=== PATIENT | female | born 1995 | race Caucasian/White ===

== ENCOUNTER 2025-03-16 14:22 | Inpatient (IN) | payer OTHER, SELFPAY ==
[2025-03-16 14:31] VITALS: BP 133/83; BP 138/62; PULSE 100; PULSE 93; RESP 16; TEMP 37; O2SAT 100; O2SAT 96; BMI 27.6
[2025-03-16 14:35] VITALS: BP 133/83; PULSE 95; RESP 14; TEMP 37; O2SAT 98
--- NOTE | 2025-03-16 14:39 | PC.NURSE ---
changer fixer done in room22 by Security Dennis and PCT Keshav. belongings locked in [facility] 3
--- NOTE | 2025-03-16 14:42 | ECG_ITS ---
Test Reason : CHECK QTC Blood Pressure : */* mmHG Vent. Rate : 102 BPM Atrial Rate : 102 BPM P-R Int : 156 ms QRS Dur : 92 ms QT Int : 368 ms P-R-T Axes : 47 80 25 degrees QTcB Int : 479 ms Sinus tachycardia Otherwise normal ECG No previous ECGs available Referred By: Rose Mary Caceres Electronically Signed By: JOSLYN GOMEZ MD
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
[2025-03-16 15:02] LABS: MANUAL DIFF FLAG NO
[2025-03-16 15:17] LABS: Basophils Percent Auto 0.3 % (0-2); Eosinophils Percent Auto 0.2 % (0-4); Hematocrit 36.3 % (37.0-47.0); Hemoglobin 11.8 g/dl (12.0-16.0); Imm Gran Abs Auto 0.05 X10*3/uL (0.00-0.03); Imm Gran Pct Auto 0.4 % (0.0-0.4); Lymphocytes Absolute Auto 2.3 X10*3/uL (1.2-4.9); Lymphocytes Percent Auto 20.7 % (20-40); Mean Corpuscular HGB Conc 32.5 g/dl (31.0-35.0); Mean Corpuscular Hemoglobin 26.8 pg (27.0-33.0); Mean Corpuscular Volume 82.5 fL (80.0-98.0); Mean Platelet Volume 8.5 fL (9.4-12.3); Monocytes Absolute Auto 0.7 X10*3/uL (0.1-1.2); Monocytes Percent Auto 5.8 % (2-11); Neutrophils Absolute Auto 8.1 x10*3/uL (2.0-8.3); Neutrophils Percent Auto 72.6 % (45-73); Platelet Count 412 X10*3/uL (160-400); White Blood Count 11.1 X10*3/uL (4.8-10.8)
[2025-03-16 15:32] LABS: Amphetamine Screen Urine Not Detected (Not Detect); Barbiturates, Urine Not Detected (Not Detect); Benzodiazepines Screen Urine Not Detected (Not Detect); Buprenorphine Scr Not Detected (Not Detect); Cannabinoid Screen Urine POSITIVE (Not Detect); Cocaine Screen Urine Not Detected (Not Detect); Fentanyl, urine Not Detected (Not Detect); Methadone Screen, Urine Not Detected (Not Detect); Opiate Screen Urine Not Detected (Not Detect); Oxycodone Screen Urine Not Detected (Not Detect); Phencyclidine Screen Urine Not Detected (Not Detect)
[2025-03-16 15:34] LABS: Alanine Aminotransferase 23 U/L (0-31); Albumin Level 4.1 g/dL (3.5-5.0); Anion Gap 13 (12-20); Aspartate Amino Transferase 25 U/L (5-31); Bilirubin Direct 0.1 mg/dL (0.0-0.5); Bilirubin Total 0.3 mg/dL (0.0-1.0); Blood Urea Nitrogen 6 mg/dL (9-16); Calcium 8.3 mg/dL (8.4-10.2); Carbon Dioxide 21 mmol/L (22-29); Chloride 109 mmol/L (96-108); Creatinine Clr Calc Pharmacy 136.9; Estimated Glomerular Filt Rate > 60; Ethanol < 10 mg/dL; Glucose Random 85 mg/dL (60-115); Magnesium 2.6 mg/dL (1.6-2.6); Sodium 139 mmol/L (135-145); Total Protein 6.8 g/dL (6.5-8.0)
[2025-03-16 15:39] LABS: Appearance Urine Clear; Color Urine Yellow; Glucose Urine UA Negative (Negative); Leukocyte Esterase Urine Negative (Negative); Nitrite Urine Negative (Negative); Urine Blood Negative (Negative); Urine Ketones 40 mg/dL (Negative); Urine Protein Negative (Neg-Trace)
[2025-03-16] MEDS: LORazepam 1 MG TABLET 2 MG PO (15:40)
[2025-03-16 15:44] LABS: Bacteria Urine 2+ (None Seen); Hyaline Casts Urine 0-2 /LPF (0-2); RBC Urine 0-2 /HPF (0-2); WBC Urine 0-5 /HPF (0-5)
[2025-03-16 16:03] LABS: Alkaline Phosphatase 79 U/L (39-117)
[2025-03-16 16:39] LABS: UPreg QC Valid YES; Urine Pregnancy NEGATIVE (NEGATIVE)
--- OUTSIDE RECORDS SUMMARY | 2025-03-16 18:01 | XMS_ITS | Encounter Summary ---
Author Organization [facility] Address [address] [place] [address] Care Team Providers Care Extractor Operator Solvent Process Name Role Phone Fidel Jiménez MD Primary Care Provider [phone] Encounter Details Date Type Department Care Team (Late st Contact Info) Description 02/14/2025 Lab Requisition [facility] Lab [address] [facility] [place] [address] Social History Tobacco Use Types Packs/Day Years Used Date Smoking Tobacco: Never Smokeless Tobacco: Never Alcohol Use Standard Drinks/Week Comments No 0 (1 standard drink = 0.6 oz pur e alcohol) Comments Unknown Sex and Gender Information Value Date Recorded Sex Assigned at Not on file Legal Sex Female 4:21 PM EST Gender Identity Not on file Sexual Orientation Not on file documented as of this encounter Plan of Treatment Not on file documented as of this encounter Visit Diagnoses Not on filedocumented in this encounter Care Teams Extractor Operator Solvent Process Relationship Specialty Start Date End Date Fidel Jiménez MD [address] [place] [id number] PCP - General Internal Medicine 03/06/16 documented as of this encounter
--- OUTSIDE RECORDS SUMMARY | 2025-03-16 18:01 | XMS_ITS | Encounter Summary ---
Author Organization [facility] Address [address] [place] [address] Care Team Providers Care Ironworker Name Role Phone Fidel Jiménez MD Primary Care Provider [phone] Encounter Details Date Type Department Care Team (Late st Contact Info) Description 02/14/2025 Lab Requisition [facility] Lab [address] [facility] [place] [phone] Susana [place] [phone] Social History Tobacco Use Types Packs/Day Years [...] on filedocumented in this encounter Care Teams Ironworker Relationship Specialty Start Date End Date Fidel Jiménez MD [address] [place] [id number] PCP - General Internal Medicine 03/06/16 documented as of this encounter
--- OUTSIDE RECORDS SUMMARY | 2025-03-16 18:01 | XMS_ITS | Clinical Summary ---
Author Organization [facility] [address] [facility] Address [address] [place] [address] Phone Care Team Providers Care Carpet Renovator Name Role Phone Fidel Jiménez MD Primary Care Provider [phone] Allergies No known active allergies Medications lamoTRIgine (LaMICtal) 100 mg tablet Take 100 mg by mouth daily. Active adapalene (Differin) 0.1 % gel apply QHS after washing 06/27/2009 Active fluticasone propionate (FLONASE) 50 mcg/actuation nasal spray 1 spray to each nostril QD 05/11/2009 Active Active Problems Problem Noted Date Diagnosed Date Other specified health status 12/15/2024 Overview (12/15/2024): Contact dermatitis and other eczema, due to unspecified cause Manic depressive illness (CMS/[facility] V24, CMS/[facility] V 28) 02/24/2012 Encounters Date Type Department Care Team Description 02/14/[address] [facility] Lab [address] [place] [phone] 02/14/[address] [facility] Lab [address] [place] [address] Liza Rivers Other long term care administrator (current) drug therapy 02/14/[address] [facility] Lab [address] [place] [address] Liza Rivers from Last 3 Months Immunizations Name Administration Dates Next Due DTP 05/05/1996, 5,04/28/1995,01/05 DTaP (Infanrix) 6wks to less than 7yo 05/15/1999 [id number] (Pentacel) 2mo to less than 5yo 05/05/1996,06/17/1995,04/28/1995,01/05 HPV, Quadrivalent 10/28/2011,05/19/2011,02/08/20 11 Hepatitis B Pediatric (Enger ix B; Recombivax HB) to less than 20 yo 08/13/1995,04/28/1995,1994 IPV Inactivated polio (Ipol) 6wks and older 04/22/2000 Influenza trivalent, with pr eservative (Fluzone; Afluria) 6mo and older 10/10/2010 MMR, measles mumps and rubel la Live (Priorix; M-M-R II) 12mo and older 04/22/2000,02/04/1996 Meningococcal MCV4P 05/11/2009 OPV 05/05/1996,04/28/1995,01/05/1995 PPD Test 05/19/2011 Tdap Tetanus diptheria acell ular pertussis (Boostrix; Adacel) 7yo and older 07/30/2007 Varicella live (Varivax) 12m o and older 02/07/2011,03/14/1998 Medical History Medical History Date Comments Contact dermatitis and other eczema, due to unspecified cause DX:Contact dermatitis and ot her eczema, due to unspecified cause Family History Medical History Relation Name Comments Hyperlipidemia Father Other cancer Father Other: HEART Maternal Grandfather Diabetes Other 1 PGGF Other: EMPHYSEMA Other 2 GRANDMOTHER Asthma Sister 1 Other: HORSE-SHOE KIDNEY Sister 2 Relation Name Status Comments Father Maternal Grandfather Other 1 Other 2 Other 3 Sister 1 Sister 2 Sister 3 Social History Tobacco Use Types Packs/Day Years Used Date Smoking Tobacco: Never Smokeless Tobacco: Never Alcohol Use Standard Drinks/Week Comments No 0 (1 standard drink = 0.6 oz pur e alcohol) Comments Unknown Sex and Gender Information Value Date Recorded Sex Assigned at Not on file Legal Sex Female 4:21 PM EST Gender Identity Not on file Sexual Orientation Not on file Obstetrics History Plan of Treatment Health Maintenance Due Date Last Done Comments Cervical Cancer Screening: Pap Smear 2015 DTaP,Tdap,and Td Vaccines (7 - Td or Tdap) 07/30/2017 07/30/2007, 05/15/1999, 05/05/1996, Additional history exists COVID-19 Vaccine ( season) 2024 Depression Screening 10/01/2024 HIV Screening 10/01/2024 Hepatitis C Screening 10/01/2024 Social Influencers of Health Screening 10/01/2024 Influenza Vaccine (Season Ended) 2025 10/10/2010 Hepatitis B Vaccines Completed 08/13/1995, 04/28/1995, 1994 HIB Vaccines Completed 05/05/1996, 05/30, 04/28/1995, Additional history exists IPV Vaccines Completed 04/22/2000, 04/1996, 05/05/1996, Additional history exists MMR Vaccines Completed 04/22/2000, 02/04/1996 Meningococcal ACWY Vaccine Aged Out 05/11/2009 N o longer eligible based on patient's age to complete this topic Varicella Vaccines Completed 02/07/2011, 03/14/1998 HPV Vaccines Completed 10/28/2011, 05/01, 02/07/2011 Hepatitis A Vaccines Aged Out No long er eligible based on patient's age to complete this topic Meningococcal B Vaccine Aged Out No l onger eligible based on patient's age to complete this topic Pneumococcal Vaccine: Pediatrics (0 to 5 Years) and At-Risk Patients (6 to 64 Years) Aged Out No longer eligible based on patient's age to complete this topic RSV Immunization Patients Under 20 months Aged Out No longer eligible based on patient's age to complete this topic Procedures Procedure Name Priority Date/Time Associated Diagnosis Comments CBC WITH AUTO DIFFERENTIAL Routine 02/14/2025 7:00 AM EDT Other [facility] (current) drug therapy COMPREHENSIVE METABOLIC PANEL Routine 02/14/2025 7:00 AM EDT Other penitentiary (current) drug therapy CBC AND DIFFERENTIAL Routine 02/14/2025 7:00 AM EDT Other long term care administrator (current) drug therapy from Last 3 Months Results * (ABNORMAL) CBC auto differential (02/14/2025 7:00 AM EDT) [facility] WBC 7.3 4.8 - 10.8 K/mcL LAB HEMETOLOGY METHOD 02/14/2025 1:02 PM [facility] RBC 4.90(H) 3.80 - 4.80 M/mcL LAB [facility] Hemoglobin 13.0 11.5 - 16.0 g/dL LAB HEMETOLOGY METHOD 02/14/2025 1:02 PM [facility] Hematocrit 40.3 35.0 - 47.0 % LAB HEMETOLOGY METHOD 02/14/2025 1:02 PM [facility] MCV 82.8 79.0 - 98.0 FL LAB HEMETOLOGY METHOD 02/14/2025 1:02 PM [facility] MCH 26.7(L) 27.0 - 32.0 pcg LAB HEMETOLOGY METHOD 02/14/2025 1:02 PM [facility] LAB MCHC 32.3 32.0 - 37.0 g/dL LAB HEMETOLOGY METHOD 02/14/2025 1:02 PM [facility] RDW 14.0 11.0 - 15.0 % LAB HEMETOLOGY METHOD 02/14/2025 1:02 PM [facility] Platelets 384 130 - 400 K/mcL LAB HEMETOLOGY METHOD 02/14/2025 1:02 PM [facility] MPV 9.7 7.0 - 11.0 FL LAB HEMETOLOGY METHOD 02/14/2025 1:02 PM [facility] NRBC 0.0 <1.0 % LAB HEMETOLOGY METHOD 02/14/2025 1:02 PM [facility] NRBC Absolute 0.00 <0.10 K/mcL LAB HEMETOLOGY METHOD 02/14/2025 1:02 PM [facility] Neutrophils Relative 63.5 % LAB HEMETOLOGY METHOD 02/14/2025 1:02 PM [facility] Lymphocytes Relative 29.4 % LAB HEMETOLOGY METHOD 02/14/2025 1:02 PM [facility] Monocytes Relative 6.3 % LAB HEMETOLOGY METHOD 02/14/2025 1:02 PM [facility] Eosinophils Relative 0.1 % LAB HEMETOLOGY METHOD 02/14/2025 1:02 PM [facility] Basophils Relative 0.4 % LAB HEMETOLOGY METHOD 02/14/2025 1:02 PM [facility] Immature Granulocytes Relative 0.3 % LAB HEMETOLOGY METHOD 02/14/2025 1:02 PM [facility] Neutrophils Absolute 4.64 1.50 - 7.00 K/mcL LAB HEMETOLOGY METHOD 02/14/2025 1:02 PM [facility] Lymphocytes Absolute 2.15 1.00 - 5.00 K/mcL LAB HEMETOLOGY METHOD 02/14/2025 1:02 PM [facility] Monocytes Absolute 0.46 0.20 - 1.00 K/mcL LAB HEMETOLOGY METHOD 02/14/2025 1:02 PM [facility] Eosinophils Absolute 0.01 0.00 - 0.50 K/mcL LAB HEMETOLOGY METHOD 02/14/2025 1:02 PM [facility] Basophils Absolute 0.03 0.00 - 0.20 K/mcL LAB HEMETOLOGY METHOD 02/14/2025 1:02 PM [facility] Immature Granulocytes Absolute 0.02 0.00 - 0.03 K/mcL LAB HEMETOLOGY METHOD 02/14/2025 1:02 PM EDT [facility] Blood Venous blood specimen / Unknown Venipuncture / Unknown 02/14/2025 7:00 AM EDT 02/14/2025 11:19 AM EDT us Liza Rivers LAB BLOOD ORDERABLES Final Resu lt [facility] [address] [place] [address], * (ABNORMAL) Comprehensive metabolic panel (02/14/2025 7:00 AM EDT) Sodium 141 133 - 145 mmol/L LAB CHEMISTRY METHOD 02/14/2025 1:49 PM [facility] Potassium 4.1 3.5 - 5.5 mmol/L LAB CHEMISTRY METHOD 02/14/2025 1:49 PM [facility] Chloride 109 96 - 110 mmol/L LAB CHEMISTRY METHOD 02/14/2025 1:49 PM [facility] CO2 23 21 - 32 mmol/L LAB CHEMISTRY METHOD 02/14/2025 1:49 PM [facility] Anion Gap 9 3 - 11 LAB CHEMISTRY METHOD 02/14/2025 1:49 PM [facility] Glucose 109(H) 70 - 100 mg/dL LAB CHEMISTRY METHOD 02/14/2025 1:49 PM [facility] BUN 7 5 - 25 mg/dL LAB CHEMISTRY METHOD 02/14/2025 1:49 PM [facility] Creatinine 0.74 0.50 - 1.10 mg/dL LAB CHEMISTRY METHOD 02/14/2025 1:49 PM [facility] eGFR 112 >=60 mL/min/1. 73m2 LAB CHEMISTRY METHOD 02/14/2025 1:49 PM [facility] Comment:Calculation based on the??Chronic Kidney Disease Epidemiology Collaboration (CKD-EPI) equation refit??without adjustment for race. BUN/Creatinine Ratio 9.5 LAB CHEMISTRY METHOD 02/14/2025 1:49 PM EDT [facility] Calcium 9.4 8.5 - 10.5 mg/dL LAB CHEMISTRY METHOD 02/14/2025 1:49 PM EDT [facility] AST (SGOT) 23 10 - 42 unit/L LAB CHEMISTRY METHOD 02/14/2025 1:49 PM EDT [facility] ALT (SGPT) 34 10 - 60 unit/L LAB CHEMISTRY METHOD 02/14/2025 1:49 PM EDT [facility] Alkaline Phosphatase 92 42 - 121 unit/L LAB CHEMISTRY METHOD 02/14/2025 1:49 PM EDT [facility] Total Protein 8.0 6.0 - 8.0 g/dL LAB CHEMISTRY METHOD 02/14/2025 1:49 PM EDT [facility] Albumin 4.4 3.2 - 5.0 g/dL LAB CHEMISTRY METHOD 02/14/2025 1:49 PM [facility] Total Bilirubin 0.4 0.0 - 1.4 mg/dL LAB CHEMISTRY METHOD 02/14/2025 1:49 PM EDT [facility] Blood Venous blood specimen / Unknown Venipuncture / Unknown 02/14/2025 7:00 AM EDT 02/14/2025 11:19 AM EDT us Liza Rivers LAB BLOOD ORDERABLES Final Resu lt [facility] [address] [place] [address], from Last 3 Months Insurance MEDICAID - [place] Care Teams Carpet Renovator Relationship Specialty Start Date End Date Fidel Jiménez MD [address] [place] [phone] PCP - General Internal Medicine 03/06/16
--- OUTSIDE RECORDS SUMMARY | 2025-03-16 18:02 | XMS_ITS | Encounter Summary ---
Author Organization [facility] Address [address] [place] [address] Care Team Providers Care Production Support Engineer Name Role Phone Fidel Jiménez MD Primary Care Provider [phone] Encounter Details Date Type Department Care Team (Late st Contact Info) Description 02/14/2025 Lab Requisition [facility] - Main Lab [address] [place] [phone] Susana Rivers-Kerry [address] [place] [phone] Other intermediate teacher (current) drug therapy Social History Tobacco Use Types Packs/Day Years [...] on file documented as of this encounter Procedures Procedure Name Priority Date/Time Associated Diagnosis Comments CBC WITH AUTO DIFFERENTIAL Routine 02/14/2025 7:00 AM EDT Other alf (current) drug therapy CBC AND DIFFERENTIAL Routine 02/14/2025 7:00 AM EDT Other alf (current) drug therapy COMPREHENSIVE METABOLIC PANEL Routine 02/14/2025 7:00 AM EDT Other alf (current) drug therapy documented in this encounter Results * (ABNORMAL) CBC auto differential (02/14/2025 7:00 AM EDT) [facility] WBC 7.3 4.8 - 10.8 K/mcL LAB HEMETOLOGY METHOD 02/14/2025 1:02 PM [facility] LAB RBC 4.90(H) 3.80 - 4.80 M/mcL LAB HEMETOLOGY METHOD 02/14/2025 1:02 PM [facility] LAB Hemoglobin 13.0 11.5 - 16.0 g/dL LAB HEMETOLOGY METHOD 02/14/2025 1:02 PM [facility] LAB Hematocrit 40.3 35.0 - 47.0 % LAB HEMETOLOGY METHOD 02/14/2025 1:02 PM [facility] MCV 82.8 79.0 - 98.0 FL LAB HEMETOLOGY METHOD 02/14/2025 1:02 PM [facility] LAB MCH 26.7(L) 27.0 - 32.0 pcg LAB HEMETOLOGY METHOD 02/14/2025 1:02 PM [facility] LAB MCHC 32.3 32.0 - 37.0 g/dL LAB HEMETOLOGY METHOD 02/14/2025 1:02 PM [facility] RDW 14.0 11.0 - 15.0 % LAB HEMETOLOGY METHOD 02/14/2025 1:02 PM [facility] Platelets 384 130 - 400 K/mcL LAB HEMETOLOGY METHOD 02/14/2025 1:02 PM [facility] MPV 9.7 7.0 - 11.0 FL LAB HEMETOLOGY METHOD 02/14/2025 1:02 PM [facility] NRBC 0.0 <1.0 % LAB HEMETOLOGY METHOD 02/14/2025 1:02 PM [facility] LAB NRBC Absolute 0.00 <0.10 K/mcL LAB HEMETOLOGY METHOD 02/14/2025 1:02 PM [facility] Neutrophils Relative 63.5 % LAB HEMETOLOGY METHOD 02/14/2025 1:02 PM [facility] Lymphocytes Relative 29.4 % LAB HEMETOLOGY METHOD 02/14/2025 1:02 PM [facility] Monocytes Relative 6.3 % LAB HEMETOLOGY METHOD 02/14/2025 1:02 PM [facility] Eosinophils Relative 0.1 % LAB HEMETOLOGY METHOD 02/14/2025 1:02 PM [facility] Basophils Relative 0.4 % LAB HEMETOLOGY METHOD 02/14/2025 1:02 PM [facility] Immature Granulocytes Relative 0.3 % LAB HEMETOLOGY METHOD 02/14/2025 1:02 PM [facility] Neutrophils Absolute 4.64 1.50 - 7.00 K/mcL LAB HEMETOLOGY METHOD 02/14/2025 1:02 PM [facility] Lymphocytes Absolute 2.15 1.00 - 5.00 K/mcL LAB HEMETOLOGY METHOD 02/14/2025 1:02 PM [facility] Monocytes Absolute 0.46 0.20 - 1.00 K/mcL LAB HEMETOLOGY METHOD 02/14/2025 1:02 PM [facility] Eosinophils Absolute 0.01 0.00 - 0.50 K/mcL LAB HEMETOLOGY METHOD 02/14/2025 1:02 PM [facility] Basophils Absolute 0.03 0.00 - 0.20 K/mcL LAB HEMETOLOGY METHOD 02/14/2025 1:02 PM [facility] Immature Granulocytes Absolute 0.02 0.00 - 0.03 K/mcL LAB HEMETOLOGY METHOD 02/14/2025 1:02 PM [facility] Blood Venous blood specimen / Unknown Venipuncture / Unknown 02/14/2025 7:00 AM EDT 02/14/2025 11:19 AM EDT us Liza Rivers LAB BLOOD ORDERABLES Final Resu lt [facility] [address] [place] [address], * (ABNORMAL) Comprehensive metabolic panel (02/14/2025 7:00 AM EDT) Sodium 141 133 - 145 mmol/L LAB CHEMISTRY METHOD 02/14/2025 1:49 PM [facility] Potassium 4.1 3.5 - 5.5 mmol/L LAB CHEMISTRY METHOD 02/14/2025 1:49 PM [facility] Chloride 109 96 - 110 mmol/L LAB CHEMISTRY METHOD 02/14/2025 1:49 PM [facility] CO2 23 21 - 32 mmol/L LAB CHEMISTRY METHOD 02/14/2025 1:49 PM [facility] Anion Gap 9 3 - 11 LAB CHEMISTRY METHOD 02/14/2025 1:49 PM [facility] Glucose 109(H) 70 - 100 mg/dL LAB CHEMISTRY METHOD 02/14/2025 1:49 PM [facility] BUN 7 5 - 25 mg/dL LAB CHEMISTRY METHOD 02/14/2025 1:49 PM [facility] Creatinine 0.74 0.50 - 1.10 mg/dL LAB CHEMISTRY METHOD 02/14/2025 1:49 PM [facility] LAB eGFR 112 >=60 mL/min/1. 73m2 LAB CHEMISTRY METHOD 02/14/2025 1:49 PM [facility] Comment:Calculation based on the??Chronic Kidney Disease Epidemiology Collaboration (CKD-EPI) equation refit??without adjustment for race. BUN/Creatinine Ratio 9.5 LAB CHEMISTRY METHOD 02/14/2025 1:49 PM EDT [facility] Calcium 9.4 8.5 - 10.5 mg/dL LAB CHEMISTRY METHOD 02/14/2025 1:49 PM EDT [facility] AST (SGOT) 23 10 - 42 unit/L LAB CHEMISTRY METHOD 02/14/2025 1:49 PM EDT [facility] ALT (SGPT) 34 10 - 60 unit/L LAB CHEMISTRY METHOD 02/14/2025 1:49 PM EDT [facility] Alkaline Phosphatase 92 42 - 121 unit/L LAB CHEMISTRY METHOD 02/14/2025 1:49 PM EDT [facility] Total Protein 8.0 6.0 - 8.0 g/dL LAB CHEMISTRY METHOD 02/14/2025 1:49 PM EDT [facility] Albumin 4.4 3.2 - 5.0 g/dL LAB CHEMISTRY METHOD 02/14/2025 1:49 PM EDT [facility] Total Bilirubin 0.4 0.0 - 1.4 mg/dL LAB CHEMISTRY METHOD 02/14/2025 1:49 PM T [facility] Blood Venous blood specimen / Unknown Venipuncture / Unknown 02/14/2025 7:00 AM EDT 02/14/2025 11:19 AM EDT us Liza Rivers LAB BLOOD ORDERABLES Final Resu lt [facility] [address] [place] [address], [place] [phone] documented in this encounter Visit Diagnoses Diagnosis Other intermediate teacher (current) drug therapy documented in this encounter Care Teams Production Support Engineer Relationship Specialty Start Date End Date Fidel Jiménez MD [address] [place] [phone] PCP - General Internal Medicine 03/06/16 documented as of this encounter
[2025-03-16 21:00] VITALS: BP 118/64; PULSE 90; RESP 12; TEMP 37.1; O2SAT 100
--- NOTE | 2025-03-16 21:44 | PHA.MEDREC ---
Pharmacy Consult ? Medication Reconciliation Pharmacy has reviewed the medication reconciliation done by nursing. Nursing confirmed pt is from home, and last took clozapine dose one week ago on 03/09.
[2025-03-16] MEDS: Mirtazapine 7.5 MG TABLET PO (22:34)
[2025-03-16] MEDS: clonazePAM 1 MG TABLET PO (22:35)
[2025-03-16] MEDS: hydrOXYzine HCL 50 MG TABLET PO (22:35)
[2025-03-16] MEDS: QUEtiapine Fumarate 300 MG TABLET 600 MG PO (22:35)
[2025-03-16] MEDS: cloZAPine 25 MG TABLET 12.5 MG PO (22:56)
[2025-03-17 06:41] VITALS: BP 107/70; PULSE 79; RESP 16; TEMP 36.3; O2SAT 100
--- NOTE | 2025-03-17 10:20 | MHC.EDTECH ---
Patient refused lab draw at this time. RN aware
[2025-03-17 11:40] LABS: MANUAL DIFF FLAG NO
[2025-03-17 11:42] LABS: Basophils Percent Auto 0.4 % (0-2); Eosinophils Absolute Auto 0.1 X10*3/uL (0.0-0.4); Eosinophils Percent Auto 0.6 % (0-4); Hematocrit 39.8 % (37.0-47.0); Imm Gran Abs Auto 0.04 X10*3/uL (0.00-0.03); Imm Gran Pct Auto 0.4 % (0.0-0.4); Lymphocytes Absolute Auto 2.8 X10*3/uL (1.2-4.9); Lymphocytes Percent Auto 25.6 % (20-40); Mean Corpuscular HGB Conc 32.7 g/dl (31.0-35.0); Mean Corpuscular Hemoglobin 27.3 pg (27.0-33.0); Mean Corpuscular Volume 83.6 fL (80.0-98.0); Mean Platelet Volume 8.5 fL (9.4-12.3); Monocytes Absolute Auto 0.6 X10*3/uL (0.1-1.2); Monocytes Percent Auto 5.5 % (2-11); Neutrophils Absolute Auto 7.4 x10*3/uL (2.0-8.3); Neutrophils Percent Auto 67.5 % (45-73); Platelet Count 390 X10*3/uL (160-400); Red Blood Count 4.76 X10*6/uL (4.20-5.50); Red Cell Distribution Width 14.2 % (11.0-16.0)
[2025-03-17] MEDS: hydrOXYzine HCL 50 MG TABLET PO ×3 (13:49→20:34)
[2025-03-17 17:07] VITALS: BMI 27.1
[2025-03-17 17:08] VITALS: BP 125/82; PULSE 76; RESP 14; TEMP 37.1; O2SAT 97
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
[2025-03-17 19:41] VITALS: BP 110/52; PULSE 76; TEMP 36.9; O2SAT 98
[2025-03-17] MEDS: QUEtiapine Fumarate 50 MG TABLET PO (20:34)
[2025-03-17] MEDS: Mirtazapine 7.5 MG TABLET PO (20:34)
[2025-03-17] MEDS: QUEtiapine Fumarate 300 MG TABLET 600 MG PO (20:35)
[2025-03-17] MEDS: traZODone HCL 50 MG TABLET PO (20:35)
[2025-03-17] MEDS: cloZAPine 25 MG TABLET PO (20:35)
[2025-03-18] MEDS: hydrOXYzine HCL 50 MG TABLET PO ×2 (08:58→21:17)
[2025-03-18] MEDS: QUEtiapine Fumarate 50 MG TABLET PO ×2 (08:58→21:13)
[2025-03-18 09:10] VITALS: BP 113/63; PULSE 81; TEMP 36.3; O2SAT 98
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
[2025-03-18 19:36] VITALS: BP 130/83; PULSE 104; TEMP 36.9; O2SAT 97
[2025-03-18] MEDS: Lithium Carbonate 300 MG TABLET 150 MG PO (21:11)
[2025-03-18] MEDS: QUEtiapine Fumarate 300 MG TABLET 600 MG PO (21:11)
[2025-03-18] MEDS: hydrOXYzine HCL 25 MG TABLET PO (21:12)
[2025-03-18] MEDS: traZODone HCL 50 MG TABLET PO ×2 (21:12→22:19)
[2025-03-18] MEDS: Mirtazapine 7.5 MG TABLET PO (21:12)
[2025-03-18] MEDS: cloZAPine 25 MG TABLET 50 MG PO (21:17)
[2025-03-18] MEDS: clonazePAM 1 MG TABLET PO (22:19)
[2025-03-18] MEDS: OLANZapine 5 MG TABLET PO (22:19)
[2025-03-18] MEDS: LORazepam 1 MG TABLET 2 MG PO (23:23)
[2025-03-19 08:00] VITALS: BP 99/55; PULSE 91; TEMP 36.9; O2SAT 98
[2025-03-19] MEDS: QUEtiapine Fumarate 50 MG TABLET PO ×2 (08:09→21:23)
[2025-03-19] MEDS: hydrOXYzine HCL 50 MG TABLET PO ×2 (08:09→21:23)
[2025-03-19] MEDS: LORazepam 1 MG TABLET 2 MG PO (08:09)
[2025-03-19 08:42] LABS: Estimated Average Glucose 97 mg/dL; Hemoglobin A1C 102.7294 umol/L; Total Hemoglobin (HGBA1C) 3257.7528 umol/L
[2025-03-19 09:01] LABS: Alanine Aminotransferase 23 U/L (0-31); Albumin Level 4.1 g/dL (3.5-5.0); Alkaline Phosphatase 68 U/L (39-117); Anion Gap 13 (12-20); Aspartate Amino Transferase 21 U/L (5-31); Bilirubin Total 0.2 mg/dL (0.0-1.0); Blood Urea Nitrogen 8 mg/dL (9-16); Calcium 9.1 mg/dL (8.4-10.2); Carbon Dioxide 21 mmol/L (22-29); Chloride 108 mmol/L (96-108); Cholesterol 166 mg/dL (<200); Creatinine Clr Calc Pharmacy 127.3; Estimated Glomerular Filt Rate > 60; Glucose Random 99 mg/dL (60-115); HDL Cholesterol 42 mg/dL (>40); LDL Cholesterol Calculated 104 mg/dL (<100); Potassium 4.2 mmol/L (3.3-5.1); Sodium 138 mmol/L (135-145); Total Protein 6.6 g/dL (6.5-8.0); Triglycerides 102 mg/dL (<150)
[2025-03-19 09:17] LABS: TSH reflex Free T4 0.95 uIU/mL (0.32-4.0)
--- NOTE | 2025-03-19 10:14 | P.PNPSI_ITS ---
Subjective Subjective Date of Service: 03/19/25 Reason For Visit: Psychosis Subjective Notes: Conditional Voluntary Interim History: Patient was seen and discussed in rounds today. Records and plans were reviewed. She continues to be somewhat labile, pacing and internally preoccupied. No SI. Eating and sleeping adequately. Endorses AVH , generally not command in nature. No changes were made today Review of Systems Review of Systems Yes all other systems are reviewed and are negative Mental Status Exam Mental Status Exam Narrative: In today's visit she is alert, oriented and pleasant. Normal speech. Good eye contact. Affect is appropriate and somewhat labile. She admits to AVH. She admits to paranoid ideations and delusions. Cognitively she is grossly intact. No active suicidal homicidal ideations. No SI. She is able to move all limbs. No gait abnormalities. Judgment is generally intact Diagnostics Vital Signs (24Hr): Vital Signs - 24 hr 03/18/25 19:36 03/19/25 08:00 Temperature 98.4 F 98.4 F Pulse Rate 104 H 91 Blood Pressure 130/83 99/55 L Pulse Oximetry 97 98 Oxygen Delivery Method Room Air Room Air BMI result Body Mass Index 27.1 Labs 03/17/25 11:34 03/19/25 08:27 Labs: Laboratory Results - last 48 hr 03/17/25 03/19/25 11:34 08:27 WBC 11.0 H RBC 4.76 Hgb 13.0 Hct 39.8 MCV 83.6 MCH 27.3 MCHC 32.7 RDW 14.2 Plt Count 390 MPV 8.5 L Immature Gran % (Auto) 0.4 Neut % (Auto) 67.5 Lymph % (Auto) 25.6 [place] % (Auto) 5.5 Eos % (Auto) 0.6 Baso % (Auto) 0.4 Lymph # (Auto) 2.8 [place] # (Auto) 0.6 Eos # (Auto) 0.1 Baso # (Auto) 0.0 Abs Immat Gran (auto) 0.04 H Absolute Neuts (auto) 7.4 Absolute Nucleated RBC 0.000 Nucleated RBC % (auto) 0.0 Sodium 138 Potassium 4.2 Chloride 108 Carbon Dioxide 21 L Anion Gap 13 BUN 8 L Creatinine 0.65 Estim Creat Clear Calc 127.3 Estimated GFR > 60 Random Glucose 99 Estimat Average Glucose 97 Hemoglobin A1c % 5.0 Calcium 9.1 D Total Bilirubin 0.2 AST 21 ALT 23 Alkaline Phosphatase 68 Total Protein 6.6 Albumin 4.1 Triglycerides 102 Cholesterol 166 LDL Cholesterol, Calc 104 H HDL Cholesterol 42 TSH 0.95 Medications Medications Current Medications Acetaminophen (Acetaminophen 325 Mg Tablet) 650 mg PO Q6H PRN PRN Reason: Headache/Pain, Scale 1-10 Al Hydroxide/Mg Hydroxide (Magnesium Hydrox/Alum Hydrox 30 Ml Oral.Susp) 30 ml PO Q6H PRN PRN Reason: Heartburn/Nausea Clonazepam (Clonazepam 1 Mg Tablet) 1 mg PO BEDTIME PRN PRN Reason: Anxiety Last Admin: 03/18/25 22:19 Dose: 1 mg Clozapine (Clozapine 100 Mg Tablet) 200 mg PO BEDTIME GRACIE Clozapine (Clozapine 100 Mg Tablet) 100 mg PO ONCE@2100 ONE Stop: 03/19/25 21:01 Hydroxyzine HCl (Hydroxyzine Hcl 50 Mg Tablet) 50 mg PO QID COUNTS INCLUDE 234 BEDS AT THE [facility] Last Admin: 03/19/25 08:09 Dose: 50 mg Hydroxyzine HCl (Hydroxyzine Hcl 25 Mg Tablet) 25 mg PO Q6H PRN PRN Reason: mild anxiety Last Admin: 03/18/25 21:12 Dose: 25 mg Florin Carbonate (Florin Carbonate 300 Mg Tablet) 150 mg PO BEDTIME COUNTS INCLUDE 234 BEDS AT THE [facility] Last Admin: 03/18/25 21:11 Dose: 150 mg Lorazepam (Lorazepam 1 Mg Tablet) 2 mg PO Q6H PRN PRN Reason: Alcohol Withdrawal Last Admin: 03/19/25 08:09 Dose: 2 mg Magnesium Hydroxide (Milk Of Magnesia 30 Ml Oral.Susp) 30 ml PO DAILY PRN PRN Reason: Constipation Mirtazapine (Mirtazapine 7.5 Mg Tablet) 7.5 mg PO BEDTIME COUNTS INCLUDE 234 BEDS AT THE [facility] Last Admin: 03/18/25 21:12 Dose: 7.5 mg Nicotine (Nicotine 21 Mg Patch.Td24) 21 mg TRANSDERMA DAILY PRN PRN Reason: smoking cessation Nicotine Polacrilex (Nicotine Polacrilex 2 Mg Gum) 4 mg BUCCAL Q2H PRN PRN Reason: Nicotine Cravings Olanzapine (Olanzapine 5 Mg Tablet) 5 mg PO TID PRN PRN Reason: agitation Last Admin: 03/18/25 22:19 Dose: 5 mg Quetiapine Fumarate (Quetiapine Fumarate 50 Mg Tablet) 50 mg PO BID COUNTS INCLUDE 234 BEDS AT THE [facility] Last Admin: 03/19/25 08:09 Dose: 50 mg Quetiapine Fumarate (Quetiapine Fumarate 300 Mg Tablet) 600 mg PO BEDTIME GRACIE Last Admin: 03/18/25 21:11 Dose: 600 mg Trazodone HCl (Trazodone Hcl 50 Mg Tablet) 50 mg PO BEDTIME MRX1 PRN PRN Reason: Insomnia Last Admin: 03/18/25 22:19 Dose: 50 mg Allergies Allergies Allergy/AdvReac Type Severity Reaction Status Date / Time No Known Allergies Allergy Verified 03/16/25 14:33 Assessment & Plan Assessment & Plan (1) Acute psychosis: Status: Acute Code(s): F23 - Brief psychotic disorder (2) Bipolar 1 disorder, mixed: Status: Acute Code(s): F31.60 - Bipolar disorder, current episode mixed, unspecified Plan 29-year-old single female with longstanding history of bipolar disorder/psychosis. She was recently discharged from another hospital and continues to be symptomatic. She is interested in resuming low-dose lithium which has been helpful to her in the past and we had a long discussion and discuss other alternatives also but she would like to do the lithium. We started at 150 mg q.h.s.. Other medications were reviewed and maintained. She will meet with her treatment team on 03/21. Contacts to be made with her treaters. 03/19: Continue current plans and regimen Reason for continued inpatient stay Substantial Risk for: med/psych decompensation Time Spent With Patient Time: Total time managing care of this patient today ____ minutes.
[2025-03-19] MEDS: Throat Lozenge, Medicated LOZENGE 1 LOZENGE MUCOUS MEM (18:06)
[2025-03-19] MEDS: Magnesium Hydrox/Alum Hydrox 30 ML ORAL.SUSP PO (18:06)
[2025-03-19 20:00] VITALS: BP 128/79; PULSE 101; RESP 16; TEMP 36.8; O2SAT 100
[2025-03-19] MEDS: QUEtiapine Fumarate 300 MG TABLET 600 MG PO (21:23)
[2025-03-19] MEDS: Mirtazapine 7.5 MG TABLET PO (21:23)
[2025-03-19] MEDS: Lithium Carbonate 300 MG TABLET 150 MG PO (21:23)
[2025-03-19] MEDS: cloZAPine 100 MG TABLET PO (21:23)
[2025-03-19] MEDS: clonazePAM 1 MG TABLET PO (22:29)
[2025-03-19] MEDS: OLANZapine 5 MG TABLET PO (22:29)
[2025-03-20] MEDS: QUEtiapine Fumarate 50 MG TABLET PO ×2 (08:27→20:52)
[2025-03-20 09:02] VITALS: BP 104/53; PULSE 86; TEMP 36; O2SAT 99
--- NOTE | 2025-03-20 10:01 | HO.PSYCHPN ---
Subjective Subjective Date of Service: 03/20/25 Reason For Visit: Psychosis Interim History: met with patient; discussed with team; reviewed chart Patient reports that she is good and found the zyprexa prn very helpful; because of this she no longer feels the need for lithium and would like it to be discontinued. Patient said mostly what she needed was being able to sleep in his grateful for the Seroquel being at a high enough dose enabling this. Mental Status Exam Mental Status Exam Narrative: Pt is alert and oriented; behavior is cooperative, friendly and calm; patient is not in distress; dressed in casual attire, adequate hygiene; mood is described as good and affect congruent; eye contact appropriate; Speech is normal rate, volume and prosody and not pressured; no psychomotor agitation/retardation present; thought process is organized and goal directed; Thought content is on tx; otherwise pertinent to relevant topics and without any delusional content, paranoid ideations or grandiosity; denies any SI/HI. Denies AVH and there is no evidence of perceptual disturbance. Patients insight and judgment appear intact. Diagnostics Vital Signs (24Hr): Vital Signs - 24 hr 03/19/25 20:00 03/20/25 09:02 Temperature 98.3 F 96.8 F Pulse Rate 101 H 86 Respiratory Rate 16 Blood Pressure 128/79 104/53 L Pulse Oximetry 100 99 Oxygen Delivery Method Room Air Room Air BMI result Body Mass Index 27.1 Labs 03/17/25 11:34 03/19/25 08:27 Labs: Laboratory Results - last 48 hr 03/19/25 08:27 Sodium 138 Potassium 4.2 Chloride 108 Carbon Dioxide 21 L Anion Gap 13 BUN 8 L Creatinine 0.65 Estim Creat Clear Calc 127.3 Estimated GFR > 60 Random Glucose 99 Estimat Average Glucose 97 Hemoglobin A1c % 5.0 Calcium 9.1 D Total Bilirubin 0.2 AST 21 ALT 23 Alkaline Phosphatase 68 Total Protein 6.6 Albumin 4.1 Triglycerides 102 Cholesterol 166 LDL Cholesterol, Calc 104 H HDL Cholesterol 42 TSH 0.95 Medications Medications Current Medications Acetaminophen (Acetaminophen 325 Mg Tablet) 650 mg PO Q6H PRN PRN Reason: Headache/Pain, Scale 1-10 Al Hydroxide/Mg Hydroxide (Magnesium Hydrox/Alum Hydrox 30 Ml Oral.Susp) 30 ml PO Q6H PRN PRN Reason: Heartburn/Nausea Last Admin: 03/19/25 18:06 Dose: 30 ml Benzocaine (Throat Lozenge, Medicated Lozenge) 1 lozenge MUCOUS MEM Q2H PRN PRN Reason: Sore Throat Last Admin: 03/19/25 18:06 Dose: 1 lozenge Clonazepam (Clonazepam 1 Mg Tablet) 1 mg PO BEDTIME PRN PRN Reason: Anxiety Last Admin: 03/19/25 22:29 Dose: 1 mg Clozapine (Clozapine 100 Mg Tablet) 200 mg PO BEDTIME GRACIE Hydroxyzine HCl (Hydroxyzine Hcl 50 Mg Tablet) 50 mg PO QID GRACIE Last Admin: 03/20/25 08:42 Dose: Not Given Hydroxyzine HCl (Hydroxyzine Hcl 25 Mg Tablet) 25 mg PO Q6H PRN PRN Reason: mild anxiety Last Admin: 03/18/25 21:12 Dose: 25 mg [place] Carbonate ([place] Carbonate 300 Mg Tablet) 150 mg PO BEDTIME GRACIE Last Admin: 03/19/25 21:23 Dose: 150 mg Lorazepam (Lorazepam 1 Mg Tablet) 2 mg PO Q6H PRN PRN Reason: Alcohol Withdrawal Last Admin: 03/19/25 08:09 Dose: 2 mg Magnesium Hydroxide (Milk Of Magnesia 30 Ml Oral.Susp) 30 ml PO DAILY PRN PRN Reason: Constipation Mirtazapine (Mirtazapine 7.5 Mg Tablet) 7.5 mg PO BEDTIME [facility] Last Admin: 03/19/25 21:23 Dose: 7.5 mg Nicotine (Nicotine 21 Mg Patch.Td24) 21 mg TRANSDERMA DAILY PRN PRN Reason: smoking cessation Nicotine Polacrilex (Nicotine Polacrilex 2 Mg Gum) 4 mg BUCCAL Q2H PRN PRN Reason: Nicotine Cravings Olanzapine (Olanzapine 5 Mg Tablet) 5 mg PO TID PRN PRN Reason: agitation Last Admin: 03/19/25 22:29 Dose: 5 mg Quetiapine Fumarate (Quetiapine Fumarate 50 Mg Tablet) 50 mg PO BID GRACIE Last Admin: 03/20/25 08:27 Dose: 50 mg Quetiapine Fumarate (Quetiapine Fumarate 300 Mg Tablet) 600 mg PO BEDTIME GRACIE Last Admin: 03/19/25 21:23 Dose: 600 mg Trazodone HCl (Trazodone Hcl 50 Mg Tablet) 50 mg PO BEDTIME MRX1 PRN PRN Reason: Insomnia Last Admin: 03/18/25 22:19 Dose: 50 mg Allergies Allergies Allergy/AdvReac Type Severity Reaction Status Date / Time No Known Allergies Allergy Verified 03/16/25 14:33 Assessment & Plan Assessment & Plan (1) Acute psychosis: Status: Acute Code(s): F23 - Brief psychotic disorder (2) Bipolar 1 disorder, mixed: Status: Acute Code(s): F31.60 - Bipolar disorder, current episode mixed, unspecified Plan 29-year-old single female with longstanding history of bipolar disorder/psychosis. She was recently discharged from another hospital and continues to be symptomatic. She is interested in resuming low-dose lithium which has been helpful to her in the past and we had a long discussion and discuss other alternatives also but she would like to do the lithium. We started at 150 mg q.h.s.. Other medications were reviewed and maintained. She will meet with her treatment team on 03/21. Contacts to be made with her treaters. 03/19: Continue current plans and regimen 03/20 Patient reports that she is good and found the zyprexa prn very helpful; because of this she no longer feels the need for lithium and would like it to be discontinued. Patient said mostly what she needed was being able to sleep in his grateful for the Seroquel being at a high enough dose enabling this. Staff concurs that patient seems much more clear today. -DC lithium -COVID negative Patient educated on: diagnosis and medication risk/benefits Informed Consent: understands Reason for continued inpatient stay Substantial Risk for: rapid decompensation Time Spent With Patient Time: Total time managing care of this patient today ____ minutes.
[2025-03-20] MEDS: Ibuprofen 600 MG TABLET PO (10:50)
[2025-03-20] MEDS: Throat Lozenge, Medicated LOZENGE 1 LOZENGE MUCOUS MEM (10:58)
[2025-03-20 12:18] LABS: Influenza A PCR NEGATIVE (Negative); Influenza B PCR NEGATIVE (Negative); Resp Syncy Virus RNA Qual PCR NEGATIVE (Negative); SARS COV2 PCR INHOUSE NEGATIVE (Negative)
[2025-03-20] MEDS: OLANZapine 5 MG TABLET PO (16:55)
[2025-03-20 20:00] VITALS: BP 136/77; PULSE 97; TEMP 36.5; O2SAT 100
[2025-03-20] MEDS: Mirtazapine 7.5 MG TABLET PO (20:51)
[2025-03-20] MEDS: cloZAPine 100 MG TABLET 200 MG PO (20:51)
[2025-03-20] MEDS: QUEtiapine Fumarate 300 MG TABLET 600 MG PO (20:52)
[2025-03-21] MEDS: clonazePAM 1 MG TABLET PO ×2 (01:31→22:52)
[2025-03-21] MEDS: QUEtiapine Fumarate 50 MG TABLET PO ×2 (08:53→20:23)
[2025-03-21 10:20] VITALS: BP 103/58; PULSE 95; RESP 16; TEMP 36.2; O2SAT 98
[2025-03-21] MEDS: Nicotine Polacrilex 2 MG GUM 4 MG BUCCAL (13:11)
--- NOTE | 2025-03-21 15:13 | HO.PSYCHPN ---
Subjective Subjective Date of Service: 03/21/25 Reason For Visit: Psychosis Subjective Notes: 3 Day Healthcare Proxy: No Guardianship: No (hx of Lj' which is now terminated) Medical Problems Affecting Mental Status: No Interim History: Met with pt and Bouchra Schwartz LCSW. Pt reports poor sleep since Dec of this year. She has been able to sleep while on the unit. States her goal was to get back on meds as her psychiatrist is on vacation. She had been off 1.5 weeks after loss of prescription. Pt's plan to take ~2 months off, get a job and return to college. She discussed a time when father was her Junior's guardian and describes no gateway when sx arose, always needing to be in hospital. Pt asks that father not be involved in her direct care-he may receive basic information. Pt reviewed meds-seroquel, clozapine, klonopin, mirtazapine, olanzapine and refill requests. Medication Compliance: Yes Side effects from medications: No Attending Groups: Intermittent Review of Systems Acute medical concerns: No Review of Systems Review of Systems Denies Mental Status Exam Mental Status Exam Patient Appearance: Appropriate Patient Orientation: Person, Place, Time and Situation Level of Consciousness: Alert Patient Behavior: Talkative and Good Eye Contact Mood Description: Appropriate and Apprehensive Affect Description: Appropriate and Apprehensive Patient Cognition Impaired: No Ability to Follow Directions: Good Speech Pattern: Spontaneous Speech Memory Description: Intact Hallucinations: None Delusions: Not Present Thought Process: Goal Oriented Thought Content: positive for Goal Oriented Depressive Symptoms: Thoughts of /Suicide (denies) Judgement: Good Diagnostics Vital Signs (24Hr): Vital Signs - 24 hr 03/20/25 20:00 03/21/25 10:20 Temperature 97.7 F 97.2 F Pulse Rate 97 95 Respiratory Rate 16 Blood Pressure 136/77 103/58 L Pulse Oximetry 100 98 Oxygen Delivery Method Room Air Room Air BMI result Body Mass Index 27.1 Labs 03/17/25 11:34 03/19/25 08:27 Labs: Laboratory Results - last 48 hr 03/20/25 11:05 Influenza Type A (PCR) NEGATIVE Influenza Type B (PCR) NEGATIVE RSV RNA Qual (PCR) NEGATIVE SARS-CoV-2 RNA (RT-PCR) NEGATIVE Medications Medications Current Medications Acetaminophen (Acetaminophen 325 Mg Tablet) 650 mg PO Q6H PRN PRN Reason: Headache/Pain, Scale 1-10 Al Hydroxide/Mg Hydroxide (Magnesium Hydrox/Alum Hydrox 30 Ml Oral.Susp) 30 ml PO Q6H PRN PRN Reason: Heartburn/Nausea Last Admin: 03/19/25 18:06 Dose: 30 ml Benzocaine (Throat Lozenge, Medicated Lozenge) 1 lozenge MUCOUS MEM Q2H PRN PRN Reason: Sore Throat Last Admin: 03/20/25 10:58 Dose: 1 lozenge Clonazepam (Clonazepam 1 Mg Tablet) 1 mg PO BEDTIME PRN PRN Reason: Anxiety Last Admin: 03/21/25 01:31 Dose: 1 mg Clozapine (Clozapine 100 Mg Tablet) 200 mg PO BEDTIME GRACIE Last Admin: 03/20/25 20:51 Dose: 200 mg Hydroxyzine HCl (Hydroxyzine Hcl 50 Mg Tablet) 50 mg PO QID PRN PRN Reason: mild anxiety Ibuprofen (Ibuprofen 600 Mg Tablet) 600 mg PO Q8H PRN PRN Reason: specifically muscle aches Last Admin: 03/20/25 10:50 Dose: 600 mg Lorazepam (Lorazepam 1 Mg Tablet) 2 mg PO Q6H PRN PRN Reason: Alcohol Withdrawal Last Admin: 03/19/25 08:09 Dose: 2 mg Magnesium Hydroxide (Milk Of Magnesia 30 Ml Oral.Susp) 30 ml PO DAILY PRN PRN Reason: Constipation Mirtazapine (Mirtazapine 7.5 Mg Tablet) 7.5 mg PO BEDTIME GRACIE Last Admin: 03/20/25 20:51 Dose: 7.5 mg Nicotine (Nicotine 21 Mg Patch.Td24) 21 mg TRANSDERMA DAILY PRN PRN Reason: smoking cessation Nicotine Polacrilex (Nicotine Polacrilex 2 Mg Gum) 4 mg BUCCAL Q2H PRN PRN Reason: Nicotine Cravings Last Admin: 03/21/25 13:11 Dose: 4 mg Olanzapine (Olanzapine 5 Mg Tablet) 5 mg PO TID PRN PRN Reason: agitation Last Admin: 03/20/25 16:55 Dose: 5 mg Quetiapine Fumarate (Quetiapine Fumarate 50 Mg Tablet) 50 mg PO BID GRACIE Last Admin: 03/21/25 08:53 Dose: 50 mg Quetiapine Fumarate (Quetiapine Fumarate 300 Mg Tablet) 600 mg PO BEDTIME GRACIE Last Admin: 03/20/25 20:52 Dose: 600 mg Trazodone HCl (Trazodone Hcl 50 Mg Tablet) 50 mg PO BEDTIME MRX1 PRN PRN Reason: Insomnia Last Admin: 03/18/25 22:19 Dose: 50 mg Allergies Allergies Allergy/AdvReac Type Severity Reaction Status Date / Time No Known Allergies Allergy Verified 03/16/25 14:33 Assessment & Plan Assessment & Plan (1) Acute psychosis: Status: Acute Code(s): F23 - Brief psychotic disorder (2) Bipolar 1 disorder, mixed: Status: Acute Code(s): F31.60 - Bipolar disorder, current episode mixed, unspecified Plan 29-year-old single female with longstanding history of bipolar disorder/psychosis. She was recently discharged from another hospital and continues to be symptomatic. She is interested in resuming low-dose lithium which has been helpful to her in the past and we had a long discussion and discuss other alternatives also but she would like to do the lithium. We started at 150 mg q.h.s.. Other medications were reviewed and maintained. She will meet with her treatment team on 03/21. Contacts to be made with her treaters. 03/19: Continue current plans and regimen 03/20 Patient reports that she is good and found the zyprexa prn very helpful; because of this she no longer feels the need for lithium and would like it to be discontinued. Patient said mostly what she needed was being able to sleep in his grateful for the Seroquel being at a high enough dose enabling this. Staff concurs that patient seems much more clear today. -DC lithium -COVID negative 03/21: Continue current plan and regime Reason for continued inpatient stay Substantial Risk for: rapid decompensation Time Spent With Patient Time: Total time managing care of this patient today ____ minutes.
[2025-03-21] MEDS: Magnesium Hydrox/Alum Hydrox 30 ML ORAL.SUSP PO (16:39)
[2025-03-21 20:00] VITALS: BP 115/67; PULSE 90; RESP 16; TEMP 36; O2SAT 99
[2025-03-21] MEDS: Mirtazapine 7.5 MG TABLET PO (20:23)
[2025-03-21] MEDS: cloZAPine 100 MG TABLET 200 MG PO (20:23)
[2025-03-21] MEDS: QUEtiapine Fumarate 300 MG TABLET 600 MG PO (20:23)
[2025-03-21] MEDS: OLANZapine 5 MG TABLET PO (22:52)
[2025-03-22 08:07] VITALS: BP 131/85; PULSE 109; TEMP 36.7; O2SAT 98
[2025-03-22] MEDS: QUEtiapine Fumarate 50 MG TABLET PO ×2 (08:35→21:22)
--- NOTE | 2025-03-22 10:03 | HO.PSYCHPN ---
Subjective Subjective Date of Service: 03/22/25 Reason For Visit: Psychosis Subjective Notes: Conditional Voluntary and 3 Day Healthcare Proxy: No Guardianship: No Medical Problems Affecting Mental Status: No Interim History: TDN to 03/23. Pt believes she has received benefit from hospital stay with re-establishing medications. She does not want to increase her length of stay. She denies SI,HI,AH,VH. There are no sx of acute nallely or psychosis. She plans a return to her OP team and asks that her prescriptions be sent to [facility]. She is aware that she is welcome to call/return as needed. Medication Compliance: Yes Side effects from medications: No Attending Groups: Intermittent Review of Systems Acute medical concerns: No Review of Systems Review of Systems Denies today. Mental Status Exam Mental Status Exam Patient Appearance: Appropriate Patient Orientation: Person, Place, Time and Situation Level of Consciousness: Alert Patient Behavior: Talkative and Good Eye Contact Mood Description: Appropriate and Apprehensive Affect Description: Appropriate and Apprehensive Patient Cognition Impaired: No Ability to Follow Directions: Good Speech Pattern: Spontaneous Speech Memory Description: Intact Hallucinations: None Delusions: Not Present Thought Process: Goal Oriented Thought Content: positive for Goal Oriented Depressive Symptoms: Thoughts of /Suicide (denies) Judgement: Good Diagnostics Vital Signs (24Hr): Vital Signs - 24 hr 03/21/25 10:20 03/21/25 20:00 03/22/25 08:07 Temperature 97.2 F 96.8 F 98.1 F Pulse Rate 95 90 109 H Respiratory Rate 16 16 Blood Pressure 103/58 L 115/67 131/85 Pulse Oximetry 98 99 98 Oxygen Delivery Method Room Air Room Air Room Air BMI result Body Mass Index 27.1 Labs 03/17/25 11:34 03/19/25 08:27 Labs: Laboratory Results - last 48 hr 03/20/25 11:05 Influenza Type A (PCR) NEGATIVE Influenza Type B (PCR) NEGATIVE RSV RNA Qual (PCR) NEGATIVE SARS-CoV-2 RNA (RT-PCR) NEGATIVE Medications Medications Current Medications Acetaminophen (Acetaminophen 325 Mg Tablet) 650 mg PO Q6H PRN PRN Reason: Headache/Pain, Scale 1-10 Al Hydroxide/Mg Hydroxide (Magnesium Hydrox/Alum Hydrox 30 Ml Oral.Susp) 30 ml PO Q6H PRN PRN Reason: Heartburn/Nausea Last Admin: 03/21/25 16:39 Dose: 30 ml Benzocaine (Throat Lozenge, Medicated Lozenge) 1 lozenge MUCOUS MEM Q2H PRN PRN Reason: Sore Throat Last Admin: 03/20/25 10:58 Dose: 1 lozenge Clonazepam (Clonazepam 1 Mg Tablet) 1 mg PO BEDTIME PRN PRN Reason: Anxiety Last Admin: 03/21/25 22:52 Dose: 1 mg Clozapine (Clozapine 100 Mg Tablet) 200 mg PO BEDTIME GRACIE Last Admin: 03/21/25 20:23 Dose: 200 mg Hydroxyzine HCl (Hydroxyzine Hcl 50 Mg Tablet) 50 mg PO QID PRN PRN Reason: mild anxiety Ibuprofen (Ibuprofen 600 Mg Tablet) 600 mg PO Q8H PRN PRN Reason: specifically muscle aches Last Admin: 03/20/25 10:50 Dose: 600 mg Lorazepam (Lorazepam 1 Mg Tablet) 2 mg PO Q6H PRN PRN Reason: Alcohol Withdrawal Last Admin: 03/19/25 08:09 Dose: 2 mg Magnesium Hydroxide (Milk Of Magnesia 30 Ml Oral.Susp) 30 ml PO DAILY PRN PRN Reason: Constipation Mirtazapine (Mirtazapine 7.5 Mg Tablet) 7.5 mg PO BEDTIME GRACIE Last Admin: 03/21/25 20:23 Dose: 7.5 mg Nicotine (Nicotine 21 Mg Patch.Td24) 21 mg TRANSDERMA DAILY PRN PRN Reason: smoking cessation Nicotine Polacrilex (Nicotine Polacrilex 2 Mg Gum) 4 mg BUCCAL Q2H PRN PRN Reason: Nicotine Cravings Last Admin: 03/21/25 13:11 Dose: 4 mg Olanzapine (Olanzapine 5 Mg Tablet) 5 mg PO TID PRN PRN Reason: agitation Last Admin: 03/21/25 22:52 Dose: 5 mg Quetiapine Fumarate (Quetiapine Fumarate 50 Mg Tablet) 50 mg PO BID GRACIE Last Admin: 03/22/25 08:35 Dose: 50 mg Quetiapine Fumarate (Quetiapine Fumarate 300 Mg Tablet) 600 mg PO BEDTIME GRACIE Last Admin: 03/21/25 20:23 Dose: 600 mg Trazodone HCl (Trazodone Hcl 50 Mg Tablet) 50 mg PO BEDTIME MRX1 PRN PRN Reason: Insomnia Last Admin: 03/18/25 22:19 Dose: 50 mg Allergies Allergies Allergy/AdvReac Type Severity Reaction Status Date / Time No Known Allergies Allergy Verified 03/16/25 14:33 Assessment & Plan Assessment & Plan (1) Acute psychosis: Status: Acute Code(s): F23 - Brief psychotic disorder (2) Bipolar 1 disorder, mixed: Status: Acute Code(s): F31.60 - Bipolar disorder, current episode mixed, unspecified Plan 29-year-old single female with longstanding history of bipolar disorder/psychosis. She was recently discharged from another hospital and continues to be symptomatic. She is interested in resuming low-dose lithium which has been helpful to her in the past and we had a long discussion and discuss other alternatives also but she would like to do the lithium. We started at 150 mg q.h.s.. Other medications were reviewed and maintained. She will meet with her treatment team on 03/21. Contacts to be made with her treaters. 03/19: Continue current plans and regimen 03/20 Patient reports that she is good and found the zyprexa prn very helpful; because of this she no longer feels the need for lithium and would like it to be discontinued. Patient said mostly what she needed was being able to sleep in his grateful for the Seroquel being at a high enough dose enabling this. Staff concurs that patient seems much more clear today. -DC lithium -COVID negative 03/21: Continue current plan and regime 03/22: Continue current plan and regime. DC 03/23 on a three day notice of intent. Patient educated on: medication risk/benefits and therapeutic strategies Informed Consent: understands Reason for continued inpatient stay Substantial Risk for: stable for discharge Time Spent With Patient Time: Total time managing care of this patient today ____ minutes.
[2025-03-22 20:00] VITALS: BP 132/85; PULSE 119; TEMP 36.9; O2SAT 98
[2025-03-22] MEDS: clonazePAM 1 MG TABLET PO (20:08)
[2025-03-22] MEDS: OLANZapine 5 MG TABLET PO (20:09)
[2025-03-22] MEDS: Mirtazapine 7.5 MG TABLET PO (21:18)
[2025-03-22] MEDS: cloZAPine 100 MG TABLET 200 MG PO (21:21)
[2025-03-22] MEDS: QUEtiapine Fumarate 300 MG TABLET 600 MG PO (21:21)
[2025-03-23 07:00] VITALS: BMI 27.2
[2025-03-23 08:00] VITALS: BP 123/73; PULSE 98; TEMP 37; O2SAT 98
[2025-03-23] MEDS: QUEtiapine Fumarate 50 MG TABLET PO (08:23)
--- NOTE | 2025-04-10 11:36 | P.DS_ITS ---
DS: Providers Provider Date of Service: 03/23/25 Date of admission: 03/17/25 15:24 Date of discharge: 03/23/25 Primary care physician: None Physician Admitting clinician: Mariano Kwan Attending physician on admission: Mariano Kwan Attending physician on discharge: Jesús Hadley Discharging clinician: Loni Robledo DS: Diagnosis Discharge Diagnosis (1) Acute psychosis: Status: Resolved (2) Bipolar 1 disorder, mixed: Status: Acute DS: Medications Discharge Medications Home Medications: Home Medications ?Medication ?Instructions ?Recorded ?Confirmed hydroxyzine pamoate 50 mg capsule 50 mg PO QID 03/16/25 03/16/25 Previous Rx's ?Medication ?Instructions ?Recorded benztropine 1 mg tablet 1 mg PO DAILY PRN EPS #15 tabs 03/22/25 clonazepam 1 mg tablet (Klonopin) 1 mg PO BEDTIME PRN anxiety, 03/22/25 insomnia #7 tabs clozapine 200 mg tablet (Clozaril) 200 mg PO BEDTIME #7 tabs 03/22/25 ibuprofen 600 mg tablet 600 mg PO Q8H PRN specifically 03/22/25 muscle aches #0 tabs mirtazapine 7.5 mg tablet 7.5 mg PO BEDTIME #15 tabs 03/22/25 nicotine (polacrilex) 2 mg gum 4 mg buccal Q2H PRN Nicotine 03/22/25 Cravings #100 ea quetiapine 300 mg tablet (Seroquel) 600 mg (2 x 300 mg) PO BEDTIME #14 03/22/25 tabs quetiapine 50 mg tablet (Seroquel) 50 mg PO BID #14 tabs 03/22/25 olanzapine 10 mg tablet 5 mg (1/2 x 10 mg) PO TID PRN 03/23/25 agitation #45 tabs Mental Status Exam Mental Status Exam Patient Appearance: Appropriate Patient Orientation: Person, Place, Time and Situation Level of Consciousness: Alert Patient Behavior: Talkative and Good Eye Contact Mood Description: Appropriate and Apprehensive Affect Description: Appropriate and Apprehensive Patient Cognition Impaired: No Ability to Follow Directions: Good Speech Pattern: Spontaneous Speech Memory Description: Intact Hallucinations: None Delusions: Not Present Thought Process: Goal Oriented Thought Content: positive for Goal Oriented Depressive Symptoms: Thoughts of /Suicide (denies) Judgement: Good DS: Summary Hospital Course Hospital Course: Admission to adult psychiatry for exacerbation of bipolar disorder and cannabis use disorder. Pt reports a discharge from a local facility two weeks prior with medication noncompliance. She reported disruptions in sleep along with increase in paranoia, SI and perceptual alterations. Medications were evaluated and adjusted. Pt was offered full milieu access to strengthen coping skills. She will return to OP providers on discharge. Status at Discharge Functional status at discharge: independent ambulation Overall status at discharge: patient is progressing back to baseline Time Spent with Patient Time attestation: Total time managing care of this patient today ____ minutes. Time spent: Less than 30 minutes Discharge Plan Discharge Anticipated Discharge Date/Time: 03/23/25 12:00 Patient Disposition: Home, Self-Care Discharge Diagnosis: Bipolar Disorder, Mixed, with Psychosis Cannabis Use Disorder Referrals: [facility] Psychiatry with Dr. Elke Johansen [Other] - 3-5 Days (Pt reported she has up coming appointments with Dr. Johansen and that she will follow up with those appointments on her own.) [facility] Crisis Stabilization and 22/06 mobile crisis [Other] - 1 Week Physician,None [Primary Care Provider] - (Pt to schedule follow up appt with PCP after discharge. ) Discharge Medications: New nicotine (polacrilex) 2 mg Gum 4 mg buccal Q2H PRN (Reason: Nicotine Cravings) Qty: 100 0RF ibuprofen 600 mg Tablet 600 mg PO Q8H PRN (Reason: specifically muscle aches) Qty: 0 0RF benztropine 1 mg tablet 1 mg PO DAILY PRN (Reason: EPS) Qty: 15 1RF clonazepam [Klonopin] 1 mg tablet 1 mg PO BEDTIME PRN (Reason: anxiety, insomnia) Qty: 7 4RF Rx Instructions: administer 30 minutes before bedtime clozapine [Clozaril] 200 mg tablet 200 mg PO BEDTIME Qty: 7 4RF quetiapine [Seroquel] 300 mg tablet 600 mg PO BEDTIME Qty: 14 4RF quetiapine [Seroquel] 50 mg tablet 50 mg PO BID Qty: 14 4RF olanzapine 10 mg tablet 5 mg PO TID PRN (Reason: agitation) Qty: 45 0RF Continued hydroxyzine pamoate 50 mg capsule 50 mg PO QID mirtazapine 7.5 mg tablet 7.5 mg PO BEDTIME Qty: 15 1RF Discontinued quetiapine 300 mg tablet 600 mg PO BEDTIME clozapine 100 mg tablet 200 mg PO BEDTIME clonazepam 1 mg tablet 1 mg PO BEDTIME PRN (Reason: Anxiety) quetiapine 50 mg tablet 50 mg PO BID Discharge Orders: Discharge Order (Routine); Ordered 03/23/25 Ordered By: Loni Robledo Diet: Advance to usual diet Activity on Discharge: As tolerated Stand Alone Forms: Patient Portal Discharge page, Community Support Print Language: Nepali Care Plan Goals: Mood and Behavioral Stabilization Abstinence from Substances Health Concerns: Mood and Behavioral Stabilization Abstinence from Substances Plan of Treatment: Attend scheduled appointments Take medications as directed Call/Return as needed Assessment: No SI,HI,AH,VH. No sx of acute nallely or psychosis Pt has re-established her regime without adverse effects. Discharge Date/Time: 03/23/25 11:30
== END 2025-03-23 11:30 | disposition home or self-care (01) | DRG 885 ==
LOC: HO.ED 22:02 → HO.PM5 03-17 15:32
PROVIDERS: Admitting Provider Psychiatry & Neurology Psychiatry; Emergency Provider Emergency Medicine; Visit Provider Clinical Nurse Specialist Psychiatric/Mental Health, Adult
DX: F31.64 Bipolar disorder, current episode mixed, severe, with psychotic features (principal); F17.210 Nicotine dependence, cigarettes, uncomplicated; Z71.6 Tobacco abuse counseling; Z20.822 Contact with and (suspected) exposure to COVID-19; Z79.899 Other long term (current) drug therapy
CPT/HCPCS: 0241U; 36415; 80048; 80053; 80061; 80076; 80307; 81001; 81025; 83036; 83735; 84443; 85025; 93005; 99285

== ENCOUNTER → 2025-03-16 14:42 | Outpatient (BNV) | payer OTHER, SELFPAY | PROVIDERS: Emergency Provider Emergency Medicine; Visit Provider Internal Medicine Cardiovascular Disease | DX: R00.0 Tachycardia, unspecified (principal) | CPT/HCPCS: 93010 ==

== ENCOUNTER → 2025-03-17 15:24 | Outpatient (BNV) | payer OTHER, SELFPAY | PROVIDERS: Admitting Provider Psychiatry & Neurology Psychiatry; Emergency Provider Emergency Medicine; Visit Provider Psychiatry & Neurology Psychiatry | DX: F31.62 Bipolar disorder, current episode mixed, moderate (principal); F23 Brief psychotic disorder | CPT/HCPCS: 99238 ==

== ENCOUNTER → 2025-03-17 15:24 | Outpatient (BNV) | payer OTHER, SELFPAY | PROVIDERS: Admitting Provider Psychiatry & Neurology Psychiatry; Emergency Provider Emergency Medicine; Visit Provider Psychiatry & Neurology Psychiatry | DX: F31.64 Bipolar disorder, current episode mixed, severe, with psychotic features (principal) | CPT/HCPCS: 90792; 99231; 99232 ==